=== PATIENT | female | born 1980 | race Caucasian/White ===

== ENCOUNTER 2023-03-10 09:42 | Emergency (ER) | payer OTHER ==
[~2023-03-10] VITALS: Ht 154.9 cm; Wt 77.3 kg
[2023-03-10 09:46] VITALS: TEMP 98.2
[2023-03-10] MEDS ORDERED: ALBU90AE IH (09:46)
[2023-03-10] MEDS ORDERED: ALBU18HF12 IH (09:46)
[2023-03-10] MEDS ORDERED: FERR325T27 PO (09:46)
[2023-03-10] MEDS ORDERED: SODIUM CHLORIDE 0.9% 1,000 ML IV ONE (10:15)
[2023-03-10] MEDS ORDERED: KETOROLAC TROMETHAMINE 30 MG/ML VIAL IVP ONE (10:15)
[2023-03-10] MEDS ORDERED: ONDANSETRON HCL 4 MG/2 ML VIAL IVP ONE (10:15)
[2023-03-10 10:29] LABS: BASOPHILS % (AUTO) 0.9 % (0.0-2.0); HEMATOCRIT 39.8 % (36-46); HEMOGLOBIN 13.1 g/dL (12.0-16.0); LYMPHOCYTES # (AUTO) 2.2 K/uL (1.0-4.8); LYMPHOCYTES % (AUTO) 23.5 % (22.0-44.0); MEAN CORPUSCULAR VOLUME 85 fL (80-100); MONOCYTES # (AUTO) 0.8 K/uL (0.1-1.0); MONOCYTES % (AUTO) 8.8 % (2.0-9.0); NEUTROPHILS # (AUTO) 5.9 K/uL (1.8-7.7); NEUTROPHILS % (AUTO) 64.8 % (40.0-70.0); PLATELET COUNT (AUTO) 204 K/uL (150-450); RED BLOOD CELL COUNT(AUTO) 4.69 MIL/uL (4.00-5.20); RED CELL DISTRIBUTION WIDTH 16.6 % (11.5-14.5)
[2023-03-10 10:37] LABS: ANION GAP 11 mmol/L (8-16); CALCIUM, TOTAL 8.5 mg/dL (8.8-10.5); CARBON DIOXIDE 24 mmol/L (22-29); CHLORIDE 102 mmol/L (98-107); CREATININE 0.75 mg/dL (0.60-1.30); GLOMERULAR FILTR. RATE CALC > 60 mL/min (>60); GLUCOSE,RANDOM 95 mg/dL (70-110); POTASSIUM 3.6 mmol/L (3.5-5.1); SODIUM SERUM 137 mmol/L (136-145)
[2023-03-10 10:48] LABS: ALANINE AMINOTRANSFERASE 26 U/L (12-78); ALBUMIN 3.5 g/dL (3.4-5.0); ALKALINE PHOSPHATASE 66 U/L (46-116); ASPARTATE AMINOTRANSFERASE 18 U/L (15-37); BILIRUBIN,TOTAL 0.4 mg/dL (0.1-1.0); HCG,QUANTITATIVE < 1 mIU/mL (0-6); LIPASE 35 U/L (16-77); TOTAL PROTEIN, SERUM 7.4 g/dL (6.4-8.2)
[2023-03-10 12:15] VITALS: BP 122/78; PULSE 82; RESP 16
== END 2023-03-10 12:41 | disposition home or self-care (01) ==
LOC: EMS 09:42
DX: R19.7 Diarrhea, unspecified (principal); R10.84 Generalized abdominal pain; J45.909 Unspecified asthma, uncomplicated; Z98.890 Other specified postprocedural states; Z90.722 Acquired absence of ovaries, bilateral
CPT/HCPCS: 99285; 74176; 96374; 96361; 96375; 80053; 83690; 84702; 85025; 36415; J1885; J2405; J7030

== ENCOUNTER 2023-08-09 19:07 | Emergency (ER) | payer OTHER ==
[~2023-08-09] VITALS: Ht 154.9 cm; Wt 75.0 kg
[~2023-08-09 19:07] MED LIST: ALBU18HF12 IH; ALBU90AE IH; FERR325T27 PO
[2023-08-09 19:18] VITALS: TEMP 98.3
[2023-08-09 19:34] LABS: BASOPHILS % (AUTO) 1.1 % (0.0-2.0); HEMATOCRIT 39.6 % (36-46); HEMOGLOBIN 13.3 g/dL (12.0-16.0); LYMPHOCYTES # (AUTO) 3.5 K/uL (1.0-4.8); LYMPHOCYTES % (AUTO) 28.1 % (22.0-44.0); MEAN CORPUSCULAR HEMOGLOBIN 29.2 pg (26.0-34.0); MEAN CORPUSCULAR HGB CONC 33.6 G/dL (31.0-37.0); MEAN CORPUSCULAR VOLUME 87 fL (80-100); MONOCYTES % (AUTO) 7.6 % (2.0-9.0); NEUTROPHILS # (AUTO) 7.6 K/uL (1.8-7.7); NEUTROPHILS % (AUTO) 61.2 % (40.0-70.0); PLATELET COUNT (AUTO) 206 K/uL (150-450); RED BLOOD CELL COUNT(AUTO) 4.55 MIL/uL (4.00-5.20); RED CELL DISTRIBUTION WIDTH 15.3 % (11.5-14.5); WHITE BLOOD COUNT (AUTO) 12.4 K/uL (4.5-11.0)
[2023-08-09 20:07] LABS: TROPONIN I-HIGH SENSITIVITY 5 ng/L (<51)
[2023-08-09 20:20] LABS: ANION GAP 11 mmol/L (8-16); CALCIUM, TOTAL 9.2 mg/dL (8.8-10.5); CARBON DIOXIDE 27 mmol/L (22-29); CHLORIDE 103 mmol/L (98-107); CREATININE 0.71 mg/dL (0.60-1.30); GLOMERULAR FILTR. RATE CALC > 60 mL/min (>60); GLUCOSE,RANDOM 98 mg/dL (70-110); POTASSIUM 3.7 mmol/L (3.5-5.1); SODIUM SERUM 141 mmol/L (136-145); UREA NITROGEN, BLOOD 12 mg/dL (7-18)
[2023-08-09 20:35] LABS: ALANINE AMINOTRANSFERASE 44 U/L (12-78); ALBUMIN 4.5 g/dL (3.4-5.0); ALKALINE PHOSPHATASE 57 U/L (46-116); ASPARTATE AMINOTRANSFERASE 29 U/L (15-37); BILIRUBIN,TOTAL 0.2 mg/dL (0.1-1.0); CREATINE KINASE, TOTAL ONLY 392 U/L (26-192); TOTAL PROTEIN, SERUM 8.3 g/dL (6.4-8.2)
[2023-08-09 20:53] LABS: COVID AG,FIA SOURCE NASAL SWAB
[2023-08-09 21:33] LABS: SARS-COV2 (COVID) ANTIGEN,FIA Negative (Negative)
[2023-08-09 21:34] LABS: INFLUENZA TYPE A NEGATIVE FOR TYPE A (NEGATIVE); INFLUENZA TYPE B NEGATIVE FOR TYPE B (NEGATIVE)
[2023-08-09] MEDS ORDERED: PRED-554 PO (22:11)
[2023-08-09] MEDS ORDERED: HYDR25CA PO (22:11)
[2023-08-09 22:15] VITALS: BP 137/84; PULSE 74; RESP 17
== END 2023-08-09 22:26 | disposition home or self-care (01) ==
LOC: EMS 19:20
DX: J45.909 Unspecified asthma, uncomplicated (principal); Z90.722 Acquired absence of ovaries, bilateral; Z98.890 Other specified postprocedural states; Z20.822 Contact with and (suspected) exposure to COVID-19
CPT/HCPCS: 71045; 80053; 82550; 84484; 85025; 87804; 93005; 99285; 36415-L1; 36415-TC

== ENCOUNTER 2024-05-07 02:54 | Emergency (ER) | payer OTHER ==
[~2024-05-07] VITALS: Ht 154.9 cm; Wt 75.0 kg
[~2024-05-07 02:54] MED LIST changes: +HYDR25CA PO; +PRED-554 PO
[2024-05-07 02:59] VITALS: TEMP 98.9
[2024-05-07] MEDS ORDERED: IBUP-1492 PO (03:58)
[2024-05-07] MEDS: KETOROLAC TROMETHAMINE 30 MG/ML VIAL IM ONE (04:04)
[2024-05-07] MEDS: DEXAMETHASONE SOD PHOS 4 MG/ML 5 ML VIAL IM ONE (04:05)
[2024-05-07 04:14] VITALS: BP 125/80; PULSE 70; RESP 16; O2SAT 98
== END 2024-05-07 04:14 | disposition home or self-care (01) ==
LOC: EMS 02:55
DX: M54.12 Radiculopathy, cervical region (principal); J45.909 Unspecified asthma, uncomplicated; Z90.721 Acquired absence of ovaries, unilateral; Z98.890 Other specified postprocedural states
CPT/HCPCS: 99284; 96372; J1100; J1885